=== PATIENT | female | born 1990 | race American Indian/Alaskan Native ===

== ENCOUNTER 2020-11-02 14:02 | Outpatient (CLI) | payer BC, MEDICAID ==
[2020-11-02 16:00] LABS: Hematocrit 33.9 % (30.3-42.9); Mean Corpuscular HGB Conc 32 % (30-34); Platelet Count 157 K/mm3 (140-440); Red Blood Count 4.88 M/mm3 (3.65-5.03); Red Cell Distribution Width 16.3 % (13.2-15.2)
[2020-11-02 16:02] LABS: Mean Corpuscular Volume 70 fl (79-97)
[2020-11-02 16:05] LABS: Bacteria,Urine 2+ /HPF (Negative); Bilirubin,Urine NEG (Negative); Blood,Urine NEG (Negative); Calcium Oxalate Crystals,Urine 2+; Color,Urine Yellow (Yellow); Mucus,Urine 2+ /HPF; Urobilinogen,Urine < 2.0 mg/dL (<2.0)
[2020-11-02 16:18] LABS: Alanine Aminotransferase 14 units/L (7-56); Uric Acid 5.1 mg/dL (3.5-7.6)
[2020-11-02] MEDS ORDERED: LACTATED RINGERS 500 ML IV ONE (17:00)
[2020-11-02 17:05] VITALS: BP 115/66
--- NOTE | 2020-11-02 18:26 | Ultrasound Report ---
ULTRASOUND OBSTETRIC LIMITED ULTRASOUND BIOPHYSICAL PROFILE TWIN INDICATION / CLINICAL INFORMATION: bpp. COMPARISON: None available. FINDINGS: TWIN A BREATHING MOVEMENT = 2 GROSS BODY MOVEMENT = 2 TONE = 2 QUALITATIVE AMNIOTIC FLUID VOLUME = 2 TOTAL BIOPHYSICAL SCORE = 8/8 PRESENTATION: Cephalic. HEART RATE (beats per minute): 134 Twin B BREATHING MOVEMENT = 2 GROSS BODY MOVEMENT = 2 TONE = 2 QUALITATIVE AMNIOTIC FLUID VOLUME = 2 TOTAL BIOPHYSICAL SCORE = 8/8 PRESENTATION: Cephalic. HEART RATE (beats per minute): 142 IMPRESSION: 1. Biophysical Score = 8/8 both twin A and twin B Signer Name: Georgi Mirza MD Signed: 11/02/2020 6:21 PM Workstation Name: [id number]
--- NOTE | 2020-11-04 07:10 | Ultrasound Report ---
Obstetrical ultrasound limited INDICATION: Evaluate for placental abruption IMPRESSION: The placenta is anterior and grade 0. No visualized evidence of placental abruption ident ified. Signer Name: Silvio Augustine MD Signed: 11/04/2020 7:06 AM Workstation Name: [id number]
== END 2020-11-02 18:00 | disposition home or self-care (01) ==
LOC: TRG 14:02 → APU 14:03 → TRG 18:00
PROVIDERS: ATTEND Obstetrics & Gynecology
DX: O26.892 Other specified pregnancy related conditions, second trimester (principal); M54.5 Low back pain; R10.9 Unspecified abdominal pain; Z3A.27 27 weeks gestation of pregnancy
CPT/HCPCS: 36415; 59025; 76815; 76819; 81001; 82565; 83615; 84450; 84460; 84550; 85027

== ENCOUNTER 2020-12-31 12:00 | Outpatient (CLI) | payer BC, MEDICAID ==
[2020-12-31 08:31] VITALS: BP 129/58
[2020-12-31 09:00] LABS: Basophils % (Auto) 0.7 % (0.0-1.8); Eosinophils # (Auto) 0.4 K/mm3 (0.0-0.4); Eosinophils % (Auto) 5.4 % (0.0-4.3); Hematocrit 33.7 % (30.3-42.9); Hemoglobin 10.8 gm/dl (10.1-14.3); Lymphocytes # (Auto) 1.8 K/mm3 (1.2-5.4); Lymphocytes % (Auto) 25.8 % (13.4-35.0); Mean Corpuscular HGB Conc 32 % (30-34); Monocytes # (Auto) 0.8 K/mm3 (0.0-0.8); Monocytes % (Auto) 11.9 % (0.0-7.3); Red Blood Count 5.21 M/mm3 (3.65-5.03)
[2020-12-31 09:33] LABS: Mean Corpuscular Volume 65 fl (79-97)
[~2020-12-31 12:00] MED LIST: BICITRA ORAL LIQD 30ML PO NR; FAMOTIDINE 20 MG/2 ML INJ IV NR; LACTATED RINGERS 1,000 ML IV SCH; METOCLOPRAMIDE 10 MG/2 ML INJ IV NR; OXYTOCIN DRIP 30 UNITS/500 ML BAG IV SCH; ceFAZolin/Water 2 GM/20 ML 2 GM/20 ML SYRINGE IV NR
[2020-12-31 12:14] LABS: Platelet Count 118 K/mm3 (140-440)
== END 2020-12-31 23:59 | disposition home or self-care (01) ==
LOC: TRG 12:00
PROVIDERS: ATTEND Obstetrics & Gynecology
DX: Z34.93 Encounter for supervision of normal pregnancy, unspecified, third trimester (principal); Z3A.35 35 weeks gestation of pregnancy
CPT/HCPCS: 36415; 85025; 86592; 86850; 86900; 86901; G0378